=== PATIENT | male | born 1960 | race Caucasian/White ===

== ENCOUNTER 2016-07-20 10:02 | Emergency (ER) | payer OTHER ==
[~2016-07-20] VITALS: Wt 70.0 kg
[~2016-07-20 10:02] MED LIST: CEPH-443 PO; HYDR-3498 PO
--- NOTE | 2016-07-20 12:34 | ERD ---
ER Documentation Chief Complaint Date/Time DATE: 07/20/16 TIME: 12:32 Chief Complaint r ankle pain from walking and rolled ankle 2 days ago . HPI This a 56-year-old male who presents to the emergency department today complaining of right foot pain. Patient is here with his son who states that on July 11 at the right a family gathering when he was walking and a family member tripped and fell on top of his foot. States that the pain was not too bad at first but then developed a "hematoma" and has had increased pain with walking. He has not taken any medication for the pain because "he does not like taking medication. Denies any fevers or chills or previous trauma. ROS All systems reviewed and are negative except as per history of present illness. Medications Home Meds Active Scripts Naproxen* (Naprosyn*) 500 Mg Tablet, 500 MG PO BID Y for PAIN AND/OR INFLAMMATION, #30 TAB Prov:MANUELA MILAN PA-C 07/20/16 Hydrocodone/Acetaminophen ([place] 5-325 Tablet) 1 Each Tablet, 1 TAB PO Q6H Y for PAIN, #12 TAB Prov:MANUELA MILAN PA-C 07/20/16 Hydrocodone Bit-Acetaminophen* ([place]*) 5-325 Mg Tab, 1 TAB PO Q6 Y for PAIN, # 14 TAB Prov:DUKE COYNE MD 06/16/15 Cephalexin* (Keflex*) 500 Mg Capsule, 500 MG PO QID for 7 Days, CAP Prov:DUKE COYNE MD 06/16/15 Allergies Allergies: Coded Allergies: No Known Allergy (Unverified , 06/23/15) PMhx/Soc History of Surgery: No Anesthesia Reaction: No Hx Neurological Disorder: No Hx Respiratory Disorders: No Hx Cardiac Disorders: No Hx Psychiatric Problems: No Hx Alcohol Use: No Hx Substance Use: No Hx Tobacco Use: No Physical Exam Vitals Vital Signs Date Time Temp Pulse Resp B/P Pulse Ox O2 Delivery O2 Flow Rate FiO2 07/20/16 10:10 98.6 69 20 140/85 99 Physical Exam Const: No acute distress Head: Atraumatic Eyes: Normal Conjunctiva ENT: Normal External Ears, Nose and Mouth. Neck: Full range of motion..~ No meningismus. Resp: Clear to auscultation bilaterally Cardio: Regular rate and rhythm, no murmurs Skin: No petechiae or rashes MSK right foot with no obvious deformity. No effusion. No ecchymosis. Tenderness palpation over cuboid. Pulses 2+. Distal neurovascular intact. Nontender medial lateral malleolus. Full active range of motion of ankle. Neur: Awake and alert Psych: Normal Mood and Affect Results 24 hrs DIAGNOSTIC IMAGING REPORT Patient: DORA CURRY : 1960 Age: 56 Sex: M MR #: [id number] DOS: 07/20/16 0000 Ordering MD: MANUELA MILAN PA-C Location: [facility] Room/Bed: PROCEDURE: XR Foot. CLINICAL INDICATION: Pain/trauma TECHNIQUE: Three views of the right foot are available for review. COMPARISON: None available FINDINGS: There is a transverse fracture of the base of the fifth metatarsal, likely involving the articular surface overlying the cuboid. Displacement is by less than 2 mm. The remaining osseous structures are intact. The forefoot articulations are maintained. Enthesiophyte formation is seen at the plantar calcaneal margin. There is no radiopaque foreign body. IMPRESSION: 1. Minimally displaced, intrarticular fracture of the base of the fifth metatarsal. RPTAT: TT .Jd Pleitez MD, MD Date Time Electronically viewed and signed by .Jd Pleitez MD, MD on 07/20/2016 13:43 .d/ CC: MANUELA MILAN PA-C Procedures/[facility] This a 56-year-old male who presents to the emergency department today complaining of right foot pain after trauma approximately 10 days ago. Patient and son was requesting an x-ray. However patient and son wanted to know if they can get the x-ray and leaving call back later for results. I have explained to them that this is not the best policy and that should he have a fracture he would need to be splinted. Son understood Per the radiology report images of the right foot show a minimally displaced intraarticular fracture of the base of the fifth metatarsal. Displacement is by less than 2 mm. The forefoot articulations are maintained. Patient declined pain medication here in the emergency department. I will give him a prescription for [place] and Naprosyn for home. Patient was placed in a splint and given crutches. He was instructed to follow-up with his primary care physician for referral to orthopedics. At this time the patient is stable for discharge and outpatient management. Patient should follow up with their PCP in the next 1-2 days. They may return to the emergency department sooner for any persistent or worsening of symptoms. Patient and son understood and agreed with the plan. Departure Diagnosis: Primary Impression: Foot fracture Encounter type: initial encounter Fracture type: closed Laterality: right Qualified Code: S92.901A - Foot fracture, right, closed, initial encounter Condition: Fair MANUELA MILAN PA-C Jul 20, 2016 12:34
--- NOTE | 2016-07-20 13:43 | RADRPT ---
PROCEDURE: XR Foot. CLINICAL INDICATION: Pain/trauma TECHNIQUE: Three views of the right foot are available for review. COMPARISON: None available FINDINGS: There is a transverse fracture of the base of the fifth metatarsal, likely involving the articular s urface overlying the cuboid. Displacement is by less than 2 mm. The remaining osseous structures a re intact. The forefoot articulations are maintained. Enthesiophyte formation is seen at the plant ar calcaneal margin. There is no radiopaque foreign body. IMPRESSION: 1. Minimally displaced, intrarticular fracture of the base of the fifth metatarsal. RPTAT: TT .Jd Pleitez MD, MD Date Time Electronically viewed and signed by .Jd Pleitez MD, on 07/20/2016 13:43 .d/
[2016-07-20] MEDS ORDERED: HYDR-906 PO (14:09)
[2016-07-20] MEDS ORDERED: NAPR-260 PO (14:09)
== END 2016-07-20 14:17 | disposition home or self-care (01) ==
LOC: FTE 10:02
DX: S92.351A Displaced fracture of fifth metatarsal bone, right foot, initial encounter for closed fracture (principal); W01.0XXA Fall on same level from slipping, tripping and stumbling without subsequent striking against object, initial encounter; Y92.9 Unspecified place or not applicable
CPT/HCPCS: 29515; 73630; Z7502